=== PATIENT | male | born 1945 | race Caucasian/White ===

== ENCOUNTER 2022-01-09 08:56 | Day surgery (SDC) | payer MEDICARE, BC ==
[~2022-01-09] VITALS: Ht 175.3 cm; Wt 91.9 kg
[~2022-01-09 08:56] MED LIST: ATOR10 PO; BAYER CHEWABLE81 MG PO; Bactrim Ds Tab1 EACH PO; CETI5 PO; CLOP75 PO; DOXY100T53; HYDCHL25 PO; LISI5 PO; NAPR500EC PO; PRED10 PO
[2022-01-09] MEDS ORDERED: NAPR220 (09:14)
[2022-01-09] MEDS ORDERED: ACETAMINOPHEN500 M2 (09:20)
== END 2022-01-09 10:58 | disposition home or self-care (01) ==
LOC: ORSCSDS 08:56
PROVIDERS: Internal Medicine Gastroenterology
PROC: 0DJD8ZZ Inspection of Lower Intestinal Tract, Via Natural or Artificial Opening Endoscopic (ICD-10-PCS; principal; 2022-01-09 10:00)
DX: Z12.11 Encounter for screening for malignant neoplasm of colon (principal); Z86.010 Personal history of colon polyps; K57.30 Diverticulosis of large intestine without perforation or abscess without bleeding; Z86.73 Personal history of transient ischemic attack (TIA), and cerebral infarction without residual deficits; E11.9 Type 2 diabetes mellitus without complications; E66.9 Obesity, unspecified; Z68.30 Body mass index [BMI] 30.0-30.9, adult; Z79.899 Other long term (current) drug therapy
CPT/HCPCS: 82947; J2704

== ENCOUNTER → 2025-01-08 | Outpatient (CLI) | payer MEDICARE, BC ==
[~2025-01-08] MED LIST changes: +ACETAMINOPHEN500 M2; +NAPR220
== END ==
LOC: LAB 14:45 → LAB SHORT 14:45
DX: R35.0 Frequency of micturition (principal); R30.0 Dysuria; N39.0 Urinary tract infection, site not specified
CPT/HCPCS: 87086